=== PATIENT | male | born 1990 | race Caucasian/White ===

== ENCOUNTER 2019-08-17 03:25 | Emergency (ER) | payer OTHER ==
[~2019-08-17 03:25] MED LIST: BUPRENORPHINE HC8 MG SL; CEPH500 PO; IBUP800 PO; MIRT30 PO; NAPR550 PO; PERM5TC TOP; SULTRIDS PO; Ultram50 MG PO
== END 2019-08-17 05:08 | disposition left against medical advice (07) ==
LOC: ER 03:25
DX: Z53.21 Procedure and treatment not carried out due to patient leaving prior to being seen by health care provider (principal)

== ENCOUNTER 2019-09-01 17:16 | Emergency (ER) | payer OTHER ==
[~2019-09-01] VITALS: Ht 177.8 cm; Wt 81.7 kg
== END 2019-09-01 18:10 | disposition left against medical advice (07) ==
LOC: ER 17:16
DX: Z53.21 Procedure and treatment not carried out due to patient leaving prior to being seen by health care provider (principal)
CPT/HCPCS: 73090

== ENCOUNTER 2019-09-01 18:34 | Emergency (ER) | payer OTHER ==
[~2019-09-01] VITALS: Ht 177.8 cm; Wt 77.1 kg
== END 2019-09-01 20:00 | disposition left against medical advice (07) ==
LOC: ER 18:34
DX: Z53.21 Procedure and treatment not carried out due to patient leaving prior to being seen by health care provider (principal)

== ENCOUNTER 2019-09-02 21:36 | Emergency (ER) | payer OTHER ==
[~2019-09-02] VITALS: Ht 175.3 cm; Wt 79.4 kg
[2019-09-03] MEDS ORDERED: Acetaminophen-1 EAC1 PO (00:24)
[2019-09-03] MEDS ORDERED: IBUP800 PO (00:24)
== END 2019-09-03 01:18 | disposition home or self-care (01) ==
LOC: ER 21:36
DX: S52.355A Nondisplaced comminuted fracture of shaft of radius, left arm, initial encounter for closed fracture (principal); S52.202A Unspecified fracture of shaft of left ulna, initial encounter for closed fracture; F17.200 Nicotine dependence, unspecified, uncomplicated; W18.2XXA Fall in (into) shower or empty bathtub, initial encounter
CPT/HCPCS: 29125; 36415; 73090; 99283-25; J1170; J2405; J2704; J7030

== ENCOUNTER 2020-01-01 03:01 | Emergency (ER) | payer OTHER ==
[~2020-01-01] VITALS: Ht 177.8 cm; Wt 79.4 kg
[~2020-01-01 03:01] MED LIST changes: +Acetaminophen-1 EAC1 PO
[2020-01-01] MEDS ORDERED: SULTRIDS PO (04:14)
== END 2020-01-01 05:05 | disposition home or self-care (01) ==
LOC: ER 03:01
DX: L02.414 Cutaneous abscess of left upper limb (principal); F17.210 Nicotine dependence, cigarettes, uncomplicated
CPT/HCPCS: 10060; 99283-25; A9270-GY

== ENCOUNTER → 2025-02-12 | Outpatient (CLI) | payer OTHER ==
[2025-02-12 18:59] LABS: Chlamydia Trachomatis Urine NOT DETECTED (NOT DETECT); Neisseria Gonorrhoea Urine NOT DETECTED (NOT DETECT)
== END ==
LOC: LAB 11:19 → LAB SHORT 11:19
PROVIDERS: Physician Assistant
DX: R30.0 Dysuria (principal)
CPT/HCPCS: 87491; 87591

== ENCOUNTER → 2025-04-28 | Outpatient (CLI) | payer OTHER | LOC: LAB SHORT 18:29 → LAB 18:29 | DX: Z22.322 Carrier or suspected carrier of Methicillin resistant Staphylococcus aureus (principal) | CPT/HCPCS: 87081 ==